=== PATIENT | male | born 1970 | race Caucasian/White ===

== ENCOUNTER 2019-11-11 15:25 | Emergency (ER) | payer SELFPAY ==
[~2019-11-11] VITALS: Ht 170.2 cm; Wt 122.9 kg
[2019-11-11 15:54] VITALS: BP 153/82
--- NOTE | 2019-11-11 15:56 | NUR ---
PT TO JACOB AGUDELO
--- NOTE | 2019-11-11 16:14 | NUR ---
PT AMBULATED TO CHAIR B
--- NOTE | 2019-11-11 16:27 | NUR ---
48 Y/O MALE PRESENTS WITH COUGH/SORE THROAT/ STUFFY NOSE X 1 DAY. DENIES ANY RECENT TRAVEL. RESP EVEN AND UNLABORED. DENIES SOB/CHEST PAIN/ N/V/D. LUNG SOUNDS CLEAR IN BILAT LOBES. BOWEL SOUNDS NORMO ACTIVE. AAOX4, CAP REFILL<3. PMH: HTN, DM NKA
[2019-11-11 16:56] VITALS: BP 153/82
--- NOTE | 2019-11-11 16:56 | NUR ---
Patient discharged with v/s stable. Written and verbal after care instructions given and explained. Patient alert, oriented and verbalized understanding of instructions. Ambulatory with steady gait. All questions addressed prior to discharge. ID band removed. Patient advised to follow up with PMD. Rx of TAMIFLU, IBUPROFEN, PROMETHAZINE given. Patient educated on indication of medication including possible reaction and side effects. Opportunity to ask questions provided and answered.
== END 2019-11-11 16:56 | disposition home or self-care (01) ==
LOC: MED 15:25
DX: B34.9 Viral infection, unspecified (principal); E11.9 Type 2 diabetes mellitus without complications; I10 Essential (primary) hypertension
CPT/HCPCS: 99283